=== PATIENT | male | born 1980 | race Caucasian/White ===

== ENCOUNTER 2021-07-10 08:42 | Emergency (ER) | payer OTHER, BC ==
[2021-07-10] MEDS ORDERED: Ketorolac 60 MG/2 ML SDV IM ONE (09:28)
[2021-07-10 12:41] VITALS: BP 113/76; PULSE 62
== END 2021-07-10 12:05 | disposition home or self-care (01) ==
LOC: MW.ED 08:42
DX: M54.50 Low back pain, unspecified (principal)
CPT/HCPCS: 72100; 73502; 81001; 96372; 99283; J1885

== ENCOUNTER 2022-10-25 16:55 | Emergency (ER) | payer BC, OTHER ==
[2022-10-25] MEDS ORDERED: Diphtheria,Pertussis(Acell),Tetanus Vaccine 0.5 ML Syringe IM ONE (19:00)
[2022-10-26 00:57] VITALS: BP 122/78; PULSE 79
== END 2022-10-25 19:35 | disposition home or self-care (01) ==
LOC: MW.ED 16:55
DX: S61.411A Laceration without foreign body of right hand, initial encounter (principal); Z23 Encounter for immunization; W23.0XXA Caught, crushed, jammed, or pinched between moving objects, initial encounter; Y92.89 Other specified places as the place of occurrence of the external cause; Y99.0 Civilian activity done for income or pay
CPT/HCPCS: 12001; 12002; 90471; 90715; 99282-25; 99283